=== PATIENT | male | born 1980 | race Two or more races ===

== ENCOUNTER 2025-02-27 21:08 | Emergency (ER) | payer OTHER ==
[~2025-02-27] VITALS: Ht 170.2 cm; Wt 81.6 kg
[2025-02-27 22:07] LABS: BASO % 0.6 % (0.1-1.2); EOS # 0.44 (0.04-0.54); EOS % 5.7 % (0.7-7.0); HEMATOCRIT 42.5 % (40.1-51.0); HEMOGLOBIN 14.8 g/dL (13.7-17.5); LYMPH # 3.62 (1.18-3.74); LYMPH % 46.5 % (19.3-53.1); MEAN CORPUSCULAR HEMOGLOBIN 33.7 pg (25.6-32.2); MONO # 0.81 (0.24-0.82); MONO % 10.4 % (4.7-12.5); NEUT # 2.84 (1.56-6.13); NEUT % 36.5 % (34.0-71.1); PLATELET COUNT 148 K/uL (163-369); RED BLOOD COUNT 4.39 M/uL (4.63-6.08); RED CELL DISTRIBUTION WIDTH 13.7 % (11.6-14.4)
[2025-02-27 22:19] LABS: CREATININE SERUM 1.01 mg/dL (0.70-1.30); GFR 79.88; POTASSIUM 4.16 mEq/L (3.5-5.1)
[2025-02-27 22:35] LABS: URINE APPEARANCE Clear; URINE BILIRRUBIN Negative (NEGATIVE); URINE BLOOD Negative; URINE COLOR Yellow; URINE GLUCOSE Negative (NEGATIVE); URINE KETONE Negative (NEGATIVE); URINE LEUKOCYTE Negative; URINE NITRATE Negative; URINE PROTEIN Negative (NEGATIVE)
[2025-02-27 22:38] LABS: URINE BACTERIA 7.3 uL (0.0-1933)
[2025-02-27 22:46] LABS: URINE EPITHELIAL CELLS 0.4 uL (0.0-38.8); URINE RBC 0.4 uL (0.0-20.8); URINE WBC 0.6 uL (0.0-23.2)
[2025-02-27] MEDS ORDERED: FUROsemide 20 MG/2 ML VIAL IV ONE (23:00)
== END 2025-02-27 23:22 | disposition home or self-care (01) ==
LOC: ER 21:29
PROVIDERS: General Practice
DX: B34.9 Viral infection, unspecified (principal); D69.6 Thrombocytopenia, unspecified; R60.0 Localized edema